=== PATIENT | female | born 1990 | race Two or more races ===

== ENCOUNTER 2016-10-04 14:28 | Emergency (ER) | payer MEDICAID ==
[~2016-10-04] VITALS: Ht 177.8 cm; Wt 106.0 kg
[2016-10-04 14:34] VITALS: BP 133/78
[2016-10-04] MEDS ORDERED: TUMS (14:38)
== END 2016-10-04 19:40 | disposition left against medical advice (07) ==
LOC: ER 14:28
DX: Z53.21 Procedure and treatment not carried out due to patient leaving prior to being seen by health care provider (principal)

== ENCOUNTER 2017-10-22 12:22 | Inpatient (IN) | payer MEDICAID ==
[~2017-10-22] VITALS: Ht 177.8 cm; Wt 106.6 kg
[~2017-10-22 12:22] MED LIST: TUMS
[2017-10-22] MEDS ORDERED: SODIUM CHLORIDE 0.9% 1,000 ML IV ONE (12:59)
[2017-10-22] MEDS ORDERED: ONDANSETRON HCL 4MG/2ML VIAL IV ONE (13:15)
[2017-10-22 13:25] LABS: CHLORIDE 92 mEq/L (98-107)
[2017-10-22 13:26] LABS: PROTHROMBIN TIME 10.7 sec (9.4-11.6)
[2017-10-22 13:29] LABS: BASOPHILS % 0.5 % (0.0-2.0); EOSINOPHILS % 0.1 % (0.0-5.0); HEMATOCRIT. 33.4 % (36.0-48.0); HEMOGLOBIN. 11.7 g/dL (12.0-16.0); LYMPHOCYTES % 15.7 % (20.0-50.0); MEAN CORPUSCULAR HEMOGLOBIN 31.1 pg (28.0-32.0); MONOCYTES % 7.3 % (2.0-8.0); NEUTROPHILS % 76.4 % (40.0-76.0); PLATELET 330 x1000/uL (130-400); RED BLOOD CELL COUNT 3.75 mill/uL (4.2-5.4); RED CELL DISTRIBUTION WIDTH 14.5 % (11.6-14.6)
[2017-10-22] MEDS ORDERED: VISCOUS LIDOCAINE 2% 15 ML UDC PO STA (13:30)
[2017-10-22] MEDS ORDERED: FAMOTIDINE 20MG/2ML VIAL IV ONE (13:30)
[2017-10-22] MEDS ORDERED: MAGNESIUM/ALUMINUM HYDROXIDE/SIMETHICONE 30ML UDC PO STA (13:30)
[2017-10-22] MEDS ORDERED: POTASSIUM CHLORIDE INJ 40 MEQ in DEXT 5% WATER 500 ML IV ONE (13:45)
[2017-10-22 17:07] LABS: CLARITY URINE CLOUDY (CLEAR); COLOR URINE DARK YELLOW (YELLOW); KETONES URINE 3+ (NEGATIVE); LEUKOCYTE ESTERASE URINE 2+ (NEGATIVE); NITRITE URINE NEGATIVE (NEGATIVE); OCCULT BLOOD URINE NEGATIVE (NEGATIVE); PH URINE 7.5 (4.5-8.0); PROTEIN URINE TRACE (NEGATIVE); SPECIFIC GRAVITY URINE 1.018 (1.005-1.030)
[2017-10-22] MEDS ORDERED: METOCLOPRAMIDE HCL 10MG/2ML VIAL IV ONE (17:15)
[2017-10-22] MEDS: SODIUM CHLORIDE 0.9% 1,000 ML IV SCH (22:50)
[2017-10-22 22:51] VITALS: BP 130/93
[2017-10-22] MEDS: FAMOTIDINE 20MG/2ML VIAL IV SCH (23:59)
[2017-10-23] VITALS: BP 125/80
[2017-10-23] MEDS: ONDANSETRON HCL 4MG/2ML VIAL IV PRN ×2 (00:40→16:00)
[2017-10-23 04:00] VITALS: BP 116/66
[2017-10-23] MEDS ORDERED: POTASSIUM CHLORIDE INJ 40 MEQ in DEXT 5% WATER 500 ML IV SCH (04:00)
[2017-10-23 06:44] LABS: HEMATOCRIT 31.3 % (36.0-48.0); HEMOGLOBIN 10.9 g/dL (12.0-16.0); MEAN CORPUSCULAR HEMOGLOBIN 31.5 pg (28.0-32.0); MEAN CORPUSCULAR VOLUME 90.8 fL (81.0-99.0); PLATELET 307 x1000/uL (130-400); RED BLOOD CELL COUNT 3.45 mill/uL (4.2-5.4); RED CELL DISTRIBUTION WIDTH 14.6 % (11.6-14.6)
[2017-10-23 07:07] LABS: CHLORIDE 100 mEq/L (98-107)
[2017-10-23 08:00] VITALS: BP 141/75
[2017-10-23] MEDS: SODIUM CHLORIDE 0.9% 1,000 ML IV SCH ×2 (08:42→14:30)
[2017-10-23] MEDS: FAMOTIDINE 20MG/2ML VIAL IV SCH (08:42)
[2017-10-23 12:00] VITALS: BP 104/56
[2017-10-23 16:00] VITALS: BP 111/60
== END 2017-10-23 16:30 | disposition left against medical advice (07) | DRG 566 ==
LOC: ER 12:22 → 6EST 17:04 → EDBEDREQ 17:16 → EDBEDREQSVC 17:16 → ENRESERV 19:14 → 6EST 21:43
PROVIDERS: ADMIT Obstetrics & Gynecology; ATTEND Obstetrics & Gynecology
DX: O21.1 Hyperemesis gravidarum with metabolic disturbance (principal); K21.9 Gastro-esophageal reflux disease without esophagitis; Z53.21 Procedure and treatment not carried out due to patient leaving prior to being seen by health care provider; O99.612 Diseases of the digestive system complicating pregnancy, second trimester; Z87.891 Personal history of nicotine dependence; Z3A.23 23 weeks gestation of pregnancy
CPT/HCPCS: 36415; 76815; 80048; 80053; 81003; 83690; 83735; 84132; 85025; 85027; 85610; 93005; 96361; 96365; 96366; 96375; 99285; J2405; J2765; J3480; J3490; J7030; J7060